=== PATIENT | female | born 1935 | race Caucasian/White ===

== ENCOUNTER 2016-11-18 10:45 | Emergency (ER) | payer MEDICARE, MEDICAID ==
--- NOTE | 2016-11-18 11:20 | ER Document Report ---
ED Fall - General Chief Complaint: Fall Stated Complaint: FALL/ HEAD PAIN Notes: The patient is an 81-year-old female, past medical history hypertension, breast cancer status post mastectomy, hyperlipidemia, presents after she had a mechanical fall out of her car and landed on the back of her head. She did not lose consciousness. She denies numbness, tingling, headache, blurry vision, neck pain, nausea, vomiting, syncope, chest pain or shortness of breath. TRAVEL OUTSIDE OF THE [place] IN LAST 30 DAYS: No - Related data Allergies/Adverse Reactions: No Known Allergies Allergy (Unverified 07/23/11 13:31) Past Medical History - General Information source: Patient - Social History Smoking Status: Never Smoker Family History: Reviewed & Not Pertinent - Past Medical History Cardiac Medical History: Reports: Hx Hypercholesterolemia, Hx Hypertension Denies: Hx Heart Attack Pulmonary Medical History: Denies: Hx Asthma Neurological Medical History: Denies: Hx Cerebrovascular Accident, Hx Seizures GI Medical History: Reports: Hx Hiatal Hernia. Denies: Hx Hepatitis, Hx Ulcer Infectious Medical History: Denies: Hx Hepatitis Past Surgical History: Reports: Hx Hysterectomy, Hx Kidney (Renal Surgery) - Right, Hx Mastectomy - rt breast avoid rt arm. Denies: Hx Open Heart Surgery, Hx Pacemaker Review of Systems - Review of Systems Notes: REVIEW OF SYSTEMS: CONSTITUTIONAL: Denies fever, chills, or sweats. Denies recent illness. EENT: Denies eye, ear, throat, or mouth pain or symptoms. Denies nasal or sinus congestion. CARDIOVASCULAR: Denies chest pain, syncope. RESPIRATORY: Denies cough, cold, or chest congestion. Denies shortness of breath, difficulty breathing, or wheezing. GASTROINTESTINAL: Denies abdominal pain. Denies nausea, vomiting, or diarrhea. Denies constipation. GENITOURINARY: Denies difficulty urinating, painful urination, burning, frequency, or blood in urine. MUSCULOSKELETAL: Denies neck or back pain or joint pain or swelling. SKIN: Denies rash or skin lesions. HEMATOLOGIC: Denies easy bruising or bleeding. LYMPHATIC: Denies swollen, enlarged glands. NEUROLOGICAL: Denies altered mental status or loss of consciousness. Denies headache. Denies weakness or paralysis or loss of use of either side. Denies problems with gait or speech. Denies sensory or motor loss. PSYCHIATRIC: Denies anxiety or stress or depression. ALL OTHER SYSTEMS REVIEWED AND NEGATIVE. Physical Exam - Vital signs Vitals: Temp Pulse Resp BP Pulse Ox 98.0 F 66 20 151/82 H 96 11/18/16 11:04 11/18/16 11:04 11/18/16 11:04 11/18/16 11:04 11/18/16 11:04 - Notes Notes: PHYSICAL EXAMINATION: GENERAL: Well-appearing, well-nourished and in no acute distress. HEAD: Small superficial abrasion over posterior head, mild swelling, normocephalic. EYES: Pupils equal round and reactive to light, extraocular movements intact, sclera anicteric, conjunctiva are normal. ENT: nares patent, oropharynx clear without exudates. Moist mucous membranes. NECK: Normal range of motion, supple without lymphadenopathy LUNGS: Breath sounds clear to auscultation bilaterally and equal. No wheezes rales or rhonchi. HEART: Regular rate and rhythm without murmurs ABDOMEN: Soft, nontender, normoactive bowel sounds. No guarding, no rebound. No masses appreciated. EXTREMITIES: Normal range of motion, no pitting or edema. No cyanosis. NEUROLOGICAL: Cranial nerves grossly intact. Normal speech, normal gait. Normal sensory, motor, and reflex exams. PSYCH: Normal mood, normal affect. SKIN: Warm, Dry, normal turgor, no rashes or lesions noted. Course - Re-evaluation Re-evalutation: 11/18/16 12:46 No skull fracture or ICH on CT. No neuro symptoms. Will DC home with strict return precautions. - Vital Signs Vital signs: Temp Pulse Resp BP Pulse Ox 98.0 F 66 20 151/82 H 96 11/18/16 11:04 11/18/16 11:04 11/18/16 11:04 11/18/16 11:04 11/18/16 11:04 - Diagnostic Test Radiology reviewed: Image reviewed, Reports reviewed Radiology results interpreted by me: 11/18/16 12:37 Right parietal scalp hematoma without intracranial hemorrhage or skull fracture. Discharge - Discharge Clinical Impression: Scalp hematoma Qualifiers: Encounter type: initial encounter Qualified Code(s): S00.03XA - Contusion of scalp, initial encounter Head injury Qualifiers: Encounter type: initial encounter Qualified Code(s): S09.90XA - Unspecified injury of head, initial encounter Condition: Good Disposition: HOME, SELF-CARE Additional Instructions: Your CAT scan does not show a skull fracture or bleeding in the brain. You may use Tylenol and Motrin with ice packs for any swelling. Return to the ER if he have worsening symptoms or any other concerns. Follow up with your primary care physician.
[2016-11-18 13:02] VITALS: BP 140/53
== END 2016-11-18 13:00 | disposition home or self-care (01) ==
LOC: ER 10:45
DX: S09.90XA Unspecified injury of head, initial encounter (principal); S00.03XA Contusion of scalp, initial encounter; I10 Essential (primary) hypertension; E78.00 Pure hypercholesterolemia, unspecified; Z85.3 Personal history of malignant neoplasm of breast; Z90.710 Acquired absence of both cervix and uterus
CPT/HCPCS: 70450; 99284

== ENCOUNTER 2017-03-22 18:03 | Emergency (ER) | payer MEDICARE, MEDICAID ==
[2017-03-22] MEDS ORDERED: DIPH/PERTUSS(ACELL)/TETANUS VAC/PF 0.5 ML SYR (>=10YO) IM ONE (18:24)
[2017-03-22] MEDS ORDERED: CEFAZOLIN 1 GM/D5W RTU 50 ML IV ONE (18:24)
[2017-03-22] MEDS ORDERED: PROPOFOL INJ 200 MG/20 ML VIAL IV ONE (18:25)
[2017-03-22] MEDS ORDERED: ACETAMINOPHEN 325 MG TABLET PO ONE (18:25)
[2017-03-22] MEDS ORDERED: MORPHINE SULFATE 10 MG/ML INJ IV PRN (18:25)
[2017-03-22] MEDS ORDERED: ONDANSETRON HCL INJ/PF 4 MG/2 ML SDV IV ONE (18:25)
--- NOTE | 2017-03-22 18:29 | ER Document Report ---
ED General - General Stated Complaint: FALL/FACIAL INJURIES Time Seen by Provider: 03/22/17 18:16 Notes: Patient is an 81-year-old female with past medical history of hypertension and hyperlipidemia who presents after having a mechanical fall. She tripped over a tree root in a yard. Denies any syncopal or proceeding symptoms. She fell onto her left wrist and also hit her face. Denies any loss of consciousness. At time of arrival patient complains of a severe, constant, aching pain to her left wrist and left forehead. Nothing improves or worsens the pain. She also notes she has had multiple abrasions over her face. She denies any hip pain and has been able to ambulate since the fall. No weakness, numbness, confusion, chest pain, or SOB. TRAVEL OUTSIDE OF THE [place] IN LAST 30 DAYS: No - Related Data Allergies/Adverse Reactions: No Known Allergies Allergy (Unverified 07/23/11 13:31) Past Medical History - General Information source: Patient - Social History Smoking Status: Never Smoker Frequency of alcohol use: None Drug Abuse: None Lives with: Family Family History: Reviewed & Not Pertinent - Past Medical History Cardiac Medical History: Reports: Hx Hypercholesterolemia, Hx Hypertension Denies: Hx Heart Attack Pulmonary Medical History: Denies: Hx Asthma Neurological Medical History: Denies: Hx Cerebrovascular Accident, Hx Seizures GI Medical History: Reports: Hx Hiatal Hernia. Denies: Hx Hepatitis, Hx Ulcer Infectious Medical History: Denies: Hx Hepatitis Past Surgical History: Reports: Hx Hysterectomy, Hx Kidney (Renal Surgery) - Right, Hx Mastectomy - rt breast avoid rt arm. Denies: Hx Open Heart Surgery, Hx Pacemaker Review of Systems - Review of Systems Notes: Constitutional: Negative for fever. Eyes: Negative for visual changes. ENT: Positive for facial injury Cardiovascular: Negative for chest injury. Respiratory: Negative for shortness of breath. Gastrointestinal: Negative for abdominal injury. Genitourinary: Negative for genital injury Musculoskeletal: Positive for left wrist deformity and pain. Skin: Positive for laceration/abrasions. Neurological: Negative for head injury. Physical Exam - Vital signs Vitals: Resp BP Pulse Ox 11 L 181/66 H 98 03/22/17 19:31 03/22/17 19:31 03/22/17 19:31 Interpretation: Hypertensive Notes: PHYSICAL EXAMINATION: GENERAL: Well-appearing, no acute distress. HEAD: Atraumatic, normocephalic. EYES: Pupils equal round and reactive to light, extraocular movements intact, sclera anicteric, conjunctiva are normal. ENT: nares patent, no oral pharyngeal trauma. No hemotympanum, no Hanks's sign , no raccoon eyes. NECK: No midline cervical spine tenderness. Patient able to move their head to 45 bilaterally without any discomfort. LUNGS: Breath sounds clear to auscultation bilaterally and equal. No wheezes rales or rhonchi. HEART: Regular rate and rhythm without murmurs. CHEST WALL: No ecchymosis over the chest wall. ABDOMEN: Soft, nontender, normoactive bowel sounds. No guarding, no rebound. No abdominal bruising. EXTREMITIES: There is a deformity of the left wrist. Hips stable to rock and compression. No pain with axial loading. BACK: No midline spinal tenderness, step-offs, or deformities. NEUROLOGICAL: Face symmetric. Tongue protrudes midline. Extraocular motions intact. Pupils are 2 mm and equally reactive. Normal speech, normal gait. 5 out of 5 strength in both the distal and proximal upper and lower extremities bilaterally. Sensation is grossly intact throughout. Finger to nose testing normal. Pronator drift normal. PSYCH: Normal mood, normal affect. SKIN: Warm, Dry, normal turgor, multiple abrasions over the face and a small hematoma to the left forehead Course - Re-evaluation Re-evalutation: 03/22/17 18:26 Presentation of a well appearing elderly patient in no acute distress, vitals within normal limits after a mechanical fall. She presents with multiple contusions and abrasions over the face without any lacerations requiring repair. Her tetanus will be updated milligram of Ancef provided. She also has an obvious deformity of her left wrist suspicious for a distal radius fracture. Patient denies a syncopal episode as the cause for today's fall. No focal neurologic deficits on exam, no evidence of basilar skull fracture on exam without evidence of hemotympanum, raccoon eyes, or periauricular hematoma. No papilledema. Patient is not on anticoagulation. GCS is 15. No loss of consciousness. No episodes of vomiting. However, based on patient's age a CT of the head has been obtained which is negative for any acute intracranial bleed. Likewise, patient was unable to be clinically cleared due to age by [place] cervical spine criteria. A CT of the cervical spine was also obtained and likewise is negative for any acute fracture. No indication for further imaging of the cervical spine. Chest and abdominal exam are benign without any focal tenderness, shortness of breath, or bruising over the chest or abdominal wall. Patient has no flank tenderness. There is no obvious findings on trauma exam today and therefore no further imaging or evaluation will be obtained at this time. 03/22/17 21:02 A distal radius fracture was noted on left wrist x-ray although CT is the head and cervical spinal normal. Patient was sedated for a closed reduction of the distal radius without complication. A splint was placed at the bedside. Postreduction films show improved alignment.At this time will discharge with return precautions and follow-up recommendations. Verbal discharge instructions given a the bedside and opportunity for questions given. Medication warnings reviewed. Patient is in agreement with this plan and has verbalized understanding of return precautions and the need for primary care follow-up in the next 24-72 hours. - Vital Signs Vital signs: Temp Pulse Resp BP Pulse Ox 62 15 157/62 H 100 03/22/17 20:50 03/22/17 21:10 03/22/17 21:10 03/22/17 21:10 - Diagnostic Test Radiology reviewed: Image reviewed, Reports reviewed Radiology results interpreted by me: 03/22/17 22:25 CT head: No acute intracranial bleed X-ray of the left wrist 1: There is a distal radius fracture with angulation and displacement Postreduction x-ray: Improved alignment of the distal radius fragment Procedures - Conscious Sedation Conscious sedation Time started: 20:41 Time completed: 20:50 Consent obtained: Yes Indication: reduction of left wrist Prior complications: Procedural sedation Pt with a mild systemic disease.: P2. - ASA Classification. Airway Evaluation: Normal anatomy Mallampati Classification: Class 1 Used during procedure: Suction available, IV access obtained, Pulse ox on pt., shellfish harvester on pt. Medications administered: Diprivan Reversal agents: None I personally performed/intraservice time: Sedation, Procedure, 30 min or less Complications: No - Immobilization Left Wrist Time completed: 20:51 Pre-Proc Neuro Vasc Exam: Normal Immobilizer type: Sugar tong Performed by: Provider Post-Proc Neuro Vasc Exam: Normal Alignment checked and good: Yes - Joint Reduction/Fracture Care Left Wrist Time completed: 20:51 Consent obtained: Yes Conscious sedation: Yes Pre-procedure NV exam: Yes Fracture: Closed Manipulation comment: hyperextension indirect traction Post-procedure NV exam: Yes Post-reduction x-ray: Joint reduced Reduction attempts: 1 Complications: No Discharge - Discharge Clinical Impression: Fall Qualifiers: Encounter type: initial encounter Qualified Code(s): W19.XXXA - Unspecified fall, initial encounter Facial abrasion Qualifiers: Encounter type: initial encounter Qualified Code(s): S00.81XA - Abrasion of other part of head, initial encounter Fracture of left distal radius Qualifiers: Encounter type: initial encounter Fracture type: closed Fracture morphology: unspecified fracture morphology Qualified Code(s): S52.502A - Unspecified fracture of the lower end of left radius, initial encounter for closed fracture Condition: Good Disposition: HOME, SELF-CARE Additional Instructions: You have been seen in the Emergency Department (ED) today following a fall. Your workup today did not reveal any injuries that require you to stay in the hospital. You can expect, though, to be stiff and sore for the next several days. You can take Tylenol 1000 mg every 6 hours as needed for pain. Take the oral morphine that you were sent home with for pain that is not controlled by Tylenol. You can apply a hot pack or electric heating pad to the sore areas. You can also use topical "Aspercreme with lidocaine" to sore areas as needed. You will need to follow-up with orthopedic surgery as you do have a left wrist fracture that we have placed in a splint here. Please follow up with your primary care doctor as soon as possible regarding today's ED visit and your recent fall. Call your doctor or return to the ED if you develop a sudden or severe headache , confusion, slurred speech, facial droop, weakness or numbness in any arm or leg, extreme fatigue, vomiting more than two times, severe abdominal pain, or other symptoms that concern you. Prescriptions: Morphine Sulfate [Morphine Ir 15 mg Tablet] 15 mg PO Q4HP PRN #12 tablet PRN Reason: Referrals: TERRENCE LEHMAN MD [Primary Care Provider] - Follow up as needed NARA ALFARO DO [ACTIVE STAFF] - Follow up in 1 week
[2017-03-23 03:46] VITALS: BP 157/66
== END 2017-03-22 22:25 | disposition home or self-care (01) ==
LOC: ER 18:03
PROC: 0PSJXZZ Reposition Left Radius, External Approach (ICD-10-PCS; principal; 2017-03-22)
DX: S52.502A Unspecified fracture of the lower end of left radius, initial encounter for closed fracture (principal); S00.81XA Abrasion of other part of head, initial encounter; W01.0XXA Fall on same level from slipping, tripping and stumbling without subsequent striking against object, initial encounter; Y92.007 Garden or yard of unspecified non-institutional (private) residence as the place of occurrence of the external cause; I10 Essential (primary) hypertension; E78.5 Hyperlipidemia, unspecified; Z90.710 Acquired absence of both cervix and uterus; Z90.11 Acquired absence of right breast and nipple; Z23 Encounter for immunization
CPT/HCPCS: 99284; 90471; 96375; 96365; 73100; 73110; 70450; 72125; 90715; 25605; J0690; J2405; J2704